=== PATIENT | female | born 1995 | race Hispanic/Latino ===

== ENCOUNTER 2020-11-27 22:32 | Emergency (ER) | payer SELFPAY ==
[~2020-11-27] VITALS: Ht 172.7 cm; Wt 152.4 kg
[2020-11-28] MEDS ORDERED: AUGMENTIN 875-1 EACH PO (04:33)
== END 2020-11-28 04:53 | disposition home or self-care (01) ==
LOC: ER 11-28 02:18
DX: S31.814A Puncture wound with foreign body of right buttock, initial encounter (principal); W22.8XXA Striking against or struck by other objects, initial encounter
CPT/HCPCS: 72170; 81025; 99283

== ENCOUNTER 2020-11-28 10:05 | Emergency (ER) | payer SELFPAY ==
[~2020-11-28] VITALS: Ht 172.7 cm; Wt 152.4 kg
[~2020-11-28 10:05] MED LIST: AUGMENTIN 875-1 EACH PO
== END 2020-11-28 12:47 | disposition home or self-care (01) ==
LOC: ER 10:15
DX: S31.814A Puncture wound with foreign body of right buttock, initial encounter (principal); W22.8XXA Striking against or struck by other objects, initial encounter
CPT/HCPCS: 99282